=== PATIENT | male | born 1990 | race Caucasian/White ===

== ENCOUNTER 2019-12-06 12:06 | Outpatient (CLI) | payer MEDICARE ==
[2019-12-06] MEDS ORDERED: Magnevist 469MG/ML 20 ML VIAL ONE (13:25)
--- NOTE | 2019-12-06 13:35 | MRI ---
MRI BRAIN WITH AND WITHOUT IV CONTRAST: HISTORY: Encephalopathy COMPARISON: None CORRELATION: None FINDINGS: No restricted diffusion is seen. No evidence of infarct, hemorrhage, mass, midline shift or abnormal extra-axial fluid collections is noted. No abnormal postcontrast enhancement is seen. The ventricular size is appropriate and the basilar cisterns are patent. There is minimal mucosal disease in the paranasal sinuses. IMPRESSION: No evidence of acute intracranial process or mass.
== END 2019-12-06 12:07 | disposition home or self-care (01) ==
LOC: BICMRI 12:06
PROVIDERS: ATTEND Psychiatry & Neurology Neurology
DX: G93.40 Encephalopathy, unspecified (principal)
CPT/HCPCS: 70553; A9579

== ENCOUNTER 2021-04-27 15:13 | Outpatient (CLI) | payer MEDICARE | END 2021-04-27 15:14 | disposition home or self-care (01) | LOC: BICRAD 15:13 | PROVIDERS: ATTEND Family Medicine | DX: M79.672 Pain in left foot (principal); M25.572 Pain in left ankle and joints of left foot; M79.89 Other specified soft tissue disorders ==